=== PATIENT | female | born 1980 | race Two or more races ===

== ENCOUNTER 2023-12-31 14:51 | Inpatient (IN) | payer OTHER ==
[~2023-12-31] VITALS: Ht 154.9 cm; Wt 55.8 kg
--- NOTE | 2023-12-31 16:06 | NUR ---
SE RECIBE PTE ALERTA Y ORIENTADA LA CUAL REFIERE VENIR POR SINTOMAS DE DENGUE Y PLAQUETAS BAJAS, EDEMA EN CUERPO Y PETEQUIAS DESDE HACE VARIOS NELSON. SE MIDEN S/V A PTE Y SE UBICA.
[2023-12-31] MEDS ORDERED: 0.9 % SODIUM CHLORIDE 1,000 ML IV STA (17:09)
--- NOTE | 2023-12-31 18:26 | NUR ---
SE ORIENTA A PACIENTE SOBRE ORDENES MEDICAS Y REFIERE ENTENDER. SE COLECTAN MUESTRAS DE LABORATORIO BAJO MEDIDAS ASEPTICAS. SE CANALIZA Y SE ADMINISTRAN IVF'S BJ ORDEN MEDICA.
[2023-12-31 18:34] LABS: HEMATOCRIT 39.2 % (36.0-45.00); HEMOGLOBIN 13.4 g/dL (12.0-15.00); MEAN CELL VOLUME 83.9 fL (80.00-100.00); MEAN CORPUSCULAR HEMOGLOBIN 28.6 pg (27.00-32.0); MEAN CORPUSCULAR HGB CONC 34.1 g/dl (32.0-36.0); RED BLOOD COUNT 4.67 M/uL (4.00-6.00); RED CELL DISTRIBUTION WIDTH 13.7 % (11.5-14.5)
[2023-12-31 18:37] LABS: INR < 0.93
[2023-12-31 18:58] LABS: ALBUMIN 3.5 gm/dL (3.4-5.0); BILIRUBIN TOTAL 0.34 mg/dL (0.3-1.2); CALCIUM 8.6 mg/dL (8.5-10.1); CREATININE SERUM 0.73 mg/dL (0.55-1.02); GFR 87.85; POTASSIUM 4.26 mEq/L (3.5-5.1); TOTAL PROTEIN 7.5 gm/dL (6.4-8.2)
[2023-12-31 19:05] LABS: PLATELET COUNT 43 K/uL (150-450)
[2023-12-31] MEDS ORDERED: 0.9 % SODIUM CHLORIDE 1,000 ML IV SCH (21:45)
[2023-12-31] MEDS ORDERED: ACETAMINOPHEN 500 MG GEL..CAP PO PRN (22:00)
[2024-01-01 00:06] LABS: PH,URINE 7.5 (5.0-8.0); URINE APPEARANCE Clear; URINE BILIRRUBIN Negative (NEGATIVE); URINE BLOOD Negative; URINE COLOR Yellow; URINE GLUCOSE Negative (NEGATIVE); URINE KETONE Negative (NEGATIVE); URINE LEUKOCYTE Trace; URINE NITRATE Negative; URINE PROTEIN Negative (NEGATIVE)
[2024-01-01 00:07] LABS: URINE BACTERIA 476.2 uL (0.0-1933); URINE EPITHELIAL CELLS 22.7 uL (0.0-38.8); URINE RBC 6.4 uL (0.0-20.8); URINE WBC 19.1 uL (0.0-23.2)
[2024-01-01 00:30] VITALS: BP 108/75; O2SAT 97
[2024-01-01 05:28] VITALS: BP 90/62; O2SAT 98
[2024-01-01 05:53] LABS: HEMATOCRIT 35.8 % (36.0-45.00); HEMOGLOBIN 11.9 g/dL (12.0-15.00); MEAN CELL VOLUME 84.4 fL (80.00-100.00); MEAN CORPUSCULAR HEMOGLOBIN 28.2 pg (27.00-32.0); MEAN CORPUSCULAR HGB CONC 33.4 g/dl (32.0-36.0); RED BLOOD COUNT 4.24 M/uL (4.00-6.00); RED CELL DISTRIBUTION WIDTH 13.1 % (11.5-14.5)
[2024-01-01 06:26] LABS: PLATELET COUNT 39 K/uL (150-450)
[2024-01-01 08:07] VITALS: BP 100/67; O2SAT 97
[2024-01-01] MEDS ORDERED: DIPHENHYDRAMINE HCL 50 MG/ML VIAL 1ML IV PRN (08:30)
[2024-01-01] MEDS ORDERED: PANTOPRAZOLE SODIUM 40 MG/VIAL VIAL IV SCH (09:00)
[2024-01-01 17:30] VITALS: BP 102/76
[2024-01-02 01:33] VITALS: BP 120/80; O2SAT 99
[2024-01-02 08:40] LABS: HEMATOCRIT 35.2 % (36.0-45.00); HEMOGLOBIN 11.8 g/dL (12.0-15.00); MEAN CELL VOLUME 84.5 fL (80.00-100.00); MEAN CORPUSCULAR HEMOGLOBIN 28.4 pg (27.00-32.0); MEAN CORPUSCULAR HGB CONC 33.6 g/dl (32.0-36.0); RED BLOOD COUNT 4.17 M/uL (4.00-6.00); RED CELL DISTRIBUTION WIDTH 13.1 % (11.5-14.5)
[2024-01-02 08:44] LABS: PLATELET COUNT 68 K/uL (150-450)
[2024-01-02 09:12] LABS: ALBUMIN 3.2 gm/dL (3.4-5.0); BILIRUBIN TOTAL 0.38 mg/dL (0.3-1.2); CALCIUM 8.5 mg/dL (8.5-10.1); CREATININE SERUM 0.78 mg/dL (0.55-1.02); GFR 81.39; GLOBULINA 3.3 G/DL (2.4-3.5); POTASSIUM 3.85 mEq/L (3.5-5.1); TOTAL PROTEIN 6.5 gm/dL (6.4-8.2)
[2024-01-02 10:00] VITALS: BP 105/71; O2SAT 97
[2024-01-02] MEDS ORDERED: INTEGRA PLUS C1 EACH PO (14:34)
[2024-01-03] MEDS ORDERED: IRON FUM,PS/FOLIC/BCOMP,C NO.9 1 CAP CAPSULE PO SCH (09:00)
== END 2024-01-02 15:24 | disposition home or self-care (01) | DRG 866 ==
LOC: ER 14:53 → MEDI 21:49 → SEC-K 21:49 → MEDI 01-01 02:58
PROVIDERS: Emergency Medicine; General Practice; ADMIT Internal Medicine; ATTEND Internal Medicine
DX: A90 Dengue fever [classical dengue] (principal); D69.6 Thrombocytopenia, unspecified; B34.9 Viral infection, unspecified; D50.9 Iron deficiency anemia, unspecified; D51.3 Other dietary vitamin B12 deficiency anemia; R74.01 Elevation of levels of liver transaminase levels